=== PATIENT | female | born 1975 | race Two or more races ===

== ENCOUNTER 2021-05-27 11:33 | Emergency (ER) | payer OTHER ==
[~2021-05-27] VITALS: Ht 165.1 cm; Wt 70.3 kg
[2021-05-27] MEDS ORDERED: METFORMIN HCL500 MG (12:24)
[2021-05-27] MEDS ORDERED: ZESTRIL10 M1 (12:24)
== END 2021-05-27 15:21 | disposition home or self-care (01) ==
LOC: ER 11:33
DX: M79.604 Pain in right leg (principal)

== ENCOUNTER 2021-09-06 16:26 | Emergency (ER) | payer OTHER ==
[~2021-09-06] VITALS: Ht 165.1 cm; Wt 72.6 kg
[~2021-09-06 16:26] MED LIST: METFORMIN HCL500 MG; ZESTRIL10 M1
== END 2021-09-06 21:13 | disposition home or self-care (01) ==
LOC: ER 16:26
DX: M77.8 Other enthesopathies, not elsewhere classified (principal)

== ENCOUNTER 2023-11-09 17:42 | Emergency (ER) | payer OTHER ==
[~2023-11-09] VITALS: Ht 162.6 cm; Wt 68.0 kg
[2023-11-09 21:53] LABS: MEAN CORPUSCULAR HGB CONC 30.4 g/dl (32.0-36.0); PLATELET COUNT 421 K/uL (150-450); RED BLOOD COUNT 3.95 M/uL (4.00-6.00); RED CELL DISTRIBUTION WIDTH 17.7 % (11.5-14.5)
[2023-11-09 21:54] LABS: HEMATOCRIT 24.8 % (36.0-45.00); HEMOGLOBIN 7.6 g/dL (12.0-15.00); MEAN CELL VOLUME 62.9 fL (80.00-100.00); MEAN CORPUSCULAR HEMOGLOBIN 19.2 pg (27.00-32.0)
[2023-11-09 22:02] LABS: URINE APPEARANCE Clear; URINE BILIRRUBIN Negative (NEGATIVE); URINE BLOOD Large; URINE COLOR Yellow; URINE GLUCOSE Negative (NEGATIVE); URINE LEUKOCYTE Negative; URINE NITRATE Negative; URINE PROTEIN Trace (NEGATIVE); URINE UROBILINOGEN 0.2 E.U./dl
[2023-11-09 22:06] LABS: URINE BACTERIA 2316.9 uL (0.0-1933); URINE EPITHELIAL CELLS 35.7 uL (0.0-38.8); URINE RBC 191.6 uL (0.0-20.8); URINE WBC 18.8 uL (0.0-23.2)
[2023-11-09 22:21] LABS: CALCIUM 9.1 mg/dL (8.5-10.1); CREATININE SERUM 0.43 mg/dL (0.55-1.02); GFR 156.06; POTASSIUM 4.44 mEq/L (3.5-5.1)
[2023-11-10] MEDS ORDERED: ESTROGENS, CONJUGATED 25 MG VIAL IV ONE (01:00)
== END 2023-11-10 01:30 | disposition home or self-care (01) ==
LOC: ER 17:43
PROVIDERS: Emergency Medicine
DX: D21.9 Benign neoplasm of connective and other soft tissue, unspecified (principal); D64.9 Anemia, unspecified; N93.9 Abnormal uterine and vaginal bleeding, unspecified; I10 Essential (primary) hypertension; E11.9 Type 2 diabetes mellitus without complications; Z79.84 Long term (current) use of oral hypoglycemic drugs; Z88.6 Allergy status to analgesic agent